=== PATIENT | male | born 1995 | race Caucasian/White ===

== ENCOUNTER 2017-11-08 12:33 | Emergency (ER) | payer MEDICAID, OTHER ==
[~2017-11-08] VITALS: Ht 157.5 cm; Wt 102.0 kg
[~2017-11-08 12:33] MED LIST: CYCL-1 PO; HYDR-569 PO
[2017-11-08 12:59] VITALS: BP 147/98
[2017-11-08] MEDS ORDERED: AMOX500C2 PO (13:15)
[2017-11-08] MEDS ORDERED: CefTRIAXone 1000mg IM Kit (w/lidocaine diluent) IM ONE (13:15)
== END 2017-11-08 13:33 | disposition home or self-care (01) ==
LOC: ER 12:34
DX: K08.89 Other specified disorders of teeth and supporting structures (principal); Z98.890 Other specified postprocedural states; Z88.8 Allergy status to other drugs, medicaments and biological substances; Z79.2 Long term (current) use of antibiotics; Z79.899 Other long term (current) drug therapy
CPT/HCPCS: 96372; 99283; J0696

== ENCOUNTER 2018-03-10 01:19 | Emergency (ER) | payer OTHER ==
[~2018-03-10] VITALS: Ht 177.8 cm; Wt 102.7 kg
[~2018-03-10 01:19] MED LIST changes: +HYDR-4383 PO; -HYDR-569 PO
[2018-03-10 01:27] VITALS: BP 145/99
[2018-03-10] MEDS ORDERED: IBUP-1986 PO (01:53)
[2018-03-10] MEDS ORDERED: AMOX500C2 PO (01:53)
[2018-03-10] MEDS ORDERED: ibuprofen tablet 400 MG TABLET PO ONE (01:55)
[2018-03-10] MEDS ORDERED: amoxicillin 250mg capsule PO ONE (01:55)
[2018-03-10] MEDS ORDERED: acetaminophen 325mg tablet PO ONE (01:55)
== END 2018-03-10 02:04 | disposition home or self-care (01) ==
LOC: ER 01:19
DX: K08.89 Other specified disorders of teeth and supporting structures (principal); R68.84 Jaw pain; Z88.8 Allergy status to other drugs, medicaments and biological substances
CPT/HCPCS: 99284

== ENCOUNTER 2019-01-28 18:39 | Emergency (ER) | payer SELFPAY ==
[~2019-01-28] VITALS: Ht 177.8 cm; Wt 100.0 kg
[~2019-01-28 18:39] MED LIST changes: +IBUP-1986 PO
[2019-01-28 18:45] VITALS: BP 164/102
[2019-01-28] MEDS ORDERED: PENI500T2 PO (19:30)
== END 2019-01-28 19:54 | disposition home or self-care (01) ==
LOC: ER 18:40
DX: S02.5XXA Fracture of tooth (traumatic), initial encounter for closed fracture (principal); K08.89 Other specified disorders of teeth and supporting structures; Z98.890 Other specified postprocedural states; Z88.8 Allergy status to other drugs, medicaments and biological substances; Z79.899 Other long term (current) drug therapy; X58.XXXA Exposure to other specified factors, initial encounter; Y93.89 Activity, other specified; Y92.89 Other specified places as the place of occurrence of the external cause; Y99.8 Other external cause status
CPT/HCPCS: 99283

== ENCOUNTER 2019-05-30 09:58 | Emergency (ER) | payer OTHER ==
[~2019-05-30] VITALS: Ht 180.3 cm; Wt 104.0 kg
[2019-05-30 10:25] VITALS: BP 148/81
[2019-05-30] MEDS ORDERED: CODE120S2 PO (11:25)
== END 2019-05-30 11:53 | disposition home or self-care (01) ==
LOC: ER 09:59
DX: J06.9 Acute upper respiratory infection, unspecified (principal); Z98.890 Other specified postprocedural states; Z88.8 Allergy status to other drugs, medicaments and biological substances
CPT/HCPCS: 99283